=== PATIENT | female | born 1955 | race Caucasian/White ===

== ENCOUNTER → 2017-10-02 | Outpatient (CLI) | payer OTHER ==
[~2017-10-02] VITALS: Ht 165.1 cm; Wt 73.9 kg
[~2017-10-02] MED LIST: CIPRO500 MG PO; NORCO 5/3251 TABLET PO; TYLENOL EXTRA500 MG PO
== END | disposition home or self-care (01) ==
LOC: OPR 08:30
PROC: 0K9P30Z Drainage of Left Hip Muscle with Drainage Device, Percutaneous Approach (ICD-10-PCS; principal; 2017-10-02)
DX: M60.08 Infective myositis, other site (principal)
CPT/HCPCS: 10030; 77012; 87070; 87075; 87205; C1729; C1769; J3010

== ENCOUNTER → 2017-10-06 | Outpatient (CLI) | payer OTHER | END | disposition home or self-care (01) | LOC: RAD 13:35 | DX: N20.0 Calculus of kidney (principal) | CPT/HCPCS: 74176 ==